=== PATIENT | male | born 1960 | race Caucasian/White ===

== ENCOUNTER 2018-04-21 22:44 | Emergency (ER) | payer BC, OTHER ==
[~2018-04-21] VITALS: Ht 175.3 cm; Wt 74.8 kg
[2018-04-21 23:20] LABS: MICROSCOPIC AUTO
[2018-04-21] MEDS ORDERED: ONDANSETRON 2MG/ML, 2ML IVPush ONE (23:30)
[2018-04-21] MEDS ORDERED: KETOROLAC 30 MG/1 ML IVPush ONE (23:30)
[2018-04-21] MEDS ORDERED: SODIUM CHLORIDE 0.9% 1,000ML IVBOLUS ONE (23:30)
[2018-04-21] MEDS ORDERED: SODIUM CHLORIDE FLUSH 10ML SYR IVF ONE (23:30)
[2018-04-21] MEDS ORDERED: ONDANSETRON 2MG/ML, 2ML ONE (23:31)
[2018-04-21] MEDS ORDERED: KETOROLAC 30 MG/1 ML ONE (23:31)
[2018-04-21] MEDS ORDERED: HYDROmorphone 2 MG/ML, 1ML ONE (23:57)
[2018-04-22] MEDS ORDERED: HYDROmorphone 1 MG/ML, 1ML IVPush PRN
[2018-04-22 01:17] VITALS: BP 128/80
== END 2018-04-22 01:54 | disposition home or self-care (01) ==
LOC: ED 04-22 01:09
DX: N13.2 Hydronephrosis with renal and ureteral calculous obstruction (principal); I10 Essential (primary) hypertension
CPT/HCPCS: 74176; 81001; 96361; 96374; 96375; 99285; J1170; J1885; J2405; J7030

== ENCOUNTER 2018-06-01 03:23 | Emergency (ER) | payer OTHER ==
[~2018-06-01] VITALS: Ht 175.3 cm; Wt 73.8 kg
[2018-06-01] MEDS ORDERED: LOSA1TAB19 PO (03:30)
[2018-06-01] MEDS ORDERED: SODIUM CHLORIDE FLUSH 10ML SYR IVF ONE (04:00)
[2018-06-01] MEDS ORDERED: SODIUM CHLORIDE 0.9% 1,000ML IV ONE (04:00)
[2018-06-01] MEDS ORDERED: ONDANSETRON 2MG/ML, 2ML IVPush ONE (04:00)
[2018-06-01] MEDS ORDERED: KETOROLAC 30 MG/1 ML IVPush ONE (04:00)
[2018-06-01] MEDS ORDERED: ONDANSETRON 2MG/ML, 2ML ONE (04:06)
[2018-06-01] MEDS ORDERED: KETOROLAC 30 MG/1 ML ONE (04:06)
[2018-06-01 04:07] LABS: BASOPHILS # (AUTO) 0.03 x10^3/uL (0-0.1); BASOPHILS % (AUTO) 1 % (0-1); EOSINOPHILS # (AUTO) 0.22 x10^3/uL (0-0.4); EOSINOPHILS % (AUTO) 6 % (1-7); LYMPHOCYTES # (AUTO) 1.23 x10^3/uL (1-3.4); LYMPHOCYTES % (AUTO) 31 % (22-44); MD NO; MEAN CORPUSCULAR HEMOGLOBIN 28.4 pg (27.5-34.5); MEAN CORPUSCULAR HGB CONC 33.8 g/dL (33.2-36.2); MEAN PLATELET VOLUME 7.4 fL (7.4-10.4); MONOCYTES # (AUTO) 0.34 x10^3/uL (0.2-0.8); MONOCYTES % (AUTO) 8 % (2-9); NEUTROPHILS # (AUTO) 2.18 x10^3/uL (1.8-6.8); NEUTROPHILS % (AUTO) 55 % (42-75); PLATELET COUNT 266 x10^3/uL (130-400); RED BLOOD COUNT 4.37 x10^6/uL (4.38-5.82); RED CELL DISTRIBUTION WIDTH 14.2 % (9.4-14.8)
[2018-06-01] MEDS ORDERED: HYDROmorphone 2 MG/ML, 1ML ONE ×2 (04:07→05:28)
[2018-06-01 04:16] LABS: MICROSCOPIC INDICATED
[2018-06-01 04:18] LABS: ALANINE AMINOTRANSFERASE 18 U/L (12-78); ANION GAP 8 mmol/L (5-15); CALCIUM 8.1 mg/dL (8.5-10.1); CHLORIDE 112 mmol/L (98-107); CREATININE 1.15 mg/dL (0.7-1.3)
[2018-06-01] MEDS: HYDROmorphone 2 MG/ML, 1ML IVPush PRN ×2 (04:19→05:36)
[2018-06-01 04:21] LABS: ALKALINE PHOSPHATASE 77 U/L (45-117); BILIRUBIN,TOTAL 0.3 mg/dL (0.2-1.0); TOTAL PROTEIN 7.2 g/dL (6.4-8.2)
[2018-06-01 04:24] LABS: CULTURE INDICATED? NO
[2018-06-01 05:19] VITALS: BP 142/91
== END 2018-06-01 06:11 | disposition home or self-care (01) ==
LOC: ED 06:05
DX: N20.0 Calculus of kidney (principal); I10 Essential (primary) hypertension; R11.10 Vomiting, unspecified; Z87.442 Personal history of urinary calculi
CPT/HCPCS: 36415; 74018; 80053; 81001; 85025; 96361; 96374; 96375; 96376; 99285; J1170; J1885; J2405; J7030